=== PATIENT | female | born 1985 | race Caucasian/White ===

== ENCOUNTER → 2017-03-13 | Outpatient (CLI) | payer BC | END | disposition home or self-care (01) | LOC: C.PAPS 11:03 | PROVIDERS: ATTEND Obstetrics & Gynecology | DX: Z01.419 Encounter for gynecological examination (general) (routine) without abnormal findings (principal) ==

== ENCOUNTER 2021-02-08 07:43 | Inpatient (IN) ==
[2021-02-08] MEDS ORDERED: OXYTOCIN 30 UNITS/500 ML BAG IV PRN ×3 (07:45→17:42)
[2021-02-08 08:15] LABS: Hematocrit (blood only) 35.6 % (37-47); Hemoglobin 12.4 g/dL (12.0-16.0); Mean Corpuscular Hemoglobin 32.4 pg (25-34); Mean Corpuscular Hgb Conc 34.8 g/dL (32-36); Mean Platelet Volume 10.8 fL (7.4-10.4); Platelet Count 144 K/uL (130-400); RDW Coefficient of Variation 13.2 % (11.5-14.5); RDW Standard Deviation 44.7 fL (36.4-46.3); Red Blood Count 3.83 M/uL (4.2-5.4); White Blood Count 12.13 K/uL (4.8-10.8)
--- NOTE | 2021-02-08 08:21 | History & Physical Report ---
Date of Service February 08, 2021 Assessment & Plan (1) : Nafisa Copeland is a 35yo who is here for planned IOL at 40 weeks. - Admit for IOL - Augmentation with Pitocin per protocol - Patient is Rh negative, might need rhogam if baby is Rh positive - Clear liquid diet - GDM on insulin--Hourly BSG checks; insulin protocol if elevated BSGs CODE STATUS: Full (2) Gestational diabetes mellitus (GDM) affecting , antepartum: (3) Need for rhogam due to Rh negative mother: Admission and Anticipated Discharge Date Admission Date: February 08, 2021 History of Present Illness Primary Care Provider: Gayathri Resendiz MD Amber Copeland is a 35 y/o female currently at 40 WGA with an KIRSTIE 02/08/21 as determined by LMP who is here for planned IOL. Her was complicated by GDM on insulin. + contractions; + movement; - fluid loss; - bloody show Had regular appointments with OB. Blood type: A- Antibody screen: Negative Rubella: Immune VDRL/RPR: Negative Gonorrhea: Negative Chlamydia: Negative HIV: Negative HbSAg: Negative GBS: Negative 01/15/21 Other screens: CF: No SMA: No Allergies Allergy/AdvReac Type Severity Reaction Status Date / Time No Known Allergies Allergy Verified 02/05/21 15:18 Home Medications Medication Instructions Recorded Confirmed Type prenat.vits,brianna,zjy-vuvl-mcjqs 1 tab PO DAILY 06/29/20 02/05/21 History acetone (urine) test #100 ea 11/27/20 02/05/21 Rx lancets 30 gauge #120 ea 11/27/20 02/05/21 Rx insulin NPH isoph U-100 human 50 unit SUBCUT HS 01/25/21 02/05/21 History [Novolin N Flexpen] insulin lispro 8 - 10 unit SUBCUT BID 01/25/21 02/05/21 History insulin lispro [Humalog KwikPen 5 - 6 unit SUBCUT QAM 01/25/21 02/05/21 History Insulin] pen needle, diabetic 32 gauge x #100 ea 01/25/21 02/05/21 Rx 5/32" blood sugar diagnostic #150 ea 02/01/21 02/05/21 Rx Patient History Medical History (Updated 12/17/20 @ 15:[address], LDN, CDE) Advanced maternal age (AMA) in Chronic constipation Hx of varicella Inverted nipple Polycystic ovarian syndrome Supervision of normal intrauterine in primigravida Tremor Surgical History H/O nasal septoplasty History of appendectomy Family History Grandmother (Maternal) Coronary heart disease Esophageal cancer Grandfather (Maternal) Stroke Other Breast cancer Denies family history of Colon cancer Ovarian cancer Prostate cancer Myocardial infarction Social History Smoking Status: Never smoker Hx Alcohol Use: No Hx Substance Use: No Preferred Language: Bulgarian Communication Ability: Effective Visual Impairment: No Limitations Hearing Ability: Normal Beliefs That Will Affect Care: None marital status: marital status details: Attila Copeland (34) [phone] Current Living Situation: Spouse Current Living Situation Comment: lives with spouse, 1 dog current occupational status: employed current occupation: Teacher @ [employer] Feels Safe at Home: Yes Safety Concerns: Feels Safe At This Time Childhood Exposure to Second-Hand Smoke: No Dental Care, Regularly: Yes Physical Activity Frequency: 1-2 Times per Week Physical Activity Frequency Comment: REGULARLY Seatbelt Use: always Sunscreen Use: Yes Sexual Activity: has been sexually active within the last 12 months Assistive Devices: None Review of Systems Denies fever or chills. Denies shortness of breath or cough Denies chest pain Denies breast pain Denies dysuria or hematuria Denies leg pain or leg swelling Denies headache or changes in vision Physical Exam Physical Exam: General: Alert, oriented. No acute distress. Cardiac: Regular rate and rhythm Respiratory: No increased work of breathing. Symmetrical chest rise. No respiratory distress. Abdomen: Gravid. Vertex position. + heart tones. - palpable contractions. EFW 7-8# Pelvic: Dilation 4-5cm; Effacement 90%; Station -[address] Vaughn External FHT and external uterine monitors used; Category I tracing;Mod FHT variability. Lower Extremities: No lower extremity edema or swelling. Results & Data ([facility]) Vital Signs (Past 12 Hours) Vital Signs Pulse BP 02/08/21 07:55 93 H 131/84 Laboratory Results Labs on admission today H.4 Hct: 35.6 WBC: 12.13 Plt: 144 Supervising Physician Co-Signing Physician Notes Resident Physician Supervision Note: I was present with Dr. Desouza during the history and exam. I discussed the case with the resident and agree with the findings and plan as documented in the note. Any exceptions or clarifications are listed here: 35yo @ 40 0/7, IOL for GDMA2. Also AMA and Rh negative. Attempted vergara bulb last night, but cervix already dilated to 3cm. This morning, /-2. Plans for pitocin induction, will check blood sugars and plan for insulin if needed. Patient undecided on epidural. She is agreeable with plan. Documented By: Kerline Vaughn DO Resident Activity Tracking Resident Involvement: Resident Care Provided Care Provided: OB Delivery
[2021-02-08] MEDS: LACTATED RINGER'S 1,000 ML IV PRN ×2 (09:56→13:46)
[2021-02-08] MEDS ORDERED: ePHEDrine sulfate 50 MG/ML AMP ONE (13:03)
[2021-02-08] MEDS ORDERED: SODIUM CHLORIDE 0.9% INJ 10 ML VIAL ONE (13:03)
[2021-02-08] MEDS ORDERED: BUPIVACAINE 0.25% 30 ML VIAL ONE (13:04)
[2021-02-08] MEDS ORDERED: fentaNYL 2MCG/ML ROPIVACAINE 1.25MG/ML 100 ML BAG EPI ONE (13:04)
[2021-02-08] MEDS ORDERED: fentaNYL citrate 100 MCG/2 ML VIAL ONE (13:04)
--- NOTE | 2021-02-08 13:40 | Anesthesiology Consultation ---
Date of Service February 08, 2021 Assessment & Plan (1) Encounter for pre-operative examination: Chart Review Chart Review: Acceptable Risk for Labor Epidural History Height/Weight Height: 5 ft 1 in Weight: 75.75 kg Allergies Allergy/AdvReac Type Severity Reaction Status Date / Time No Known Allergies Allergy Verified 02/08/21 12:31 Medications Home Medications Medication Instructions Recorded Confirmed Last Taken acetone (urine) test #100 ea 11/27/20 02/05/21 Unknown lancets 30 gauge #120 ea 11/27/20 02/05/21 Unknown pen needle, diabetic 32 gauge x #100 ea 01/25/21 02/05/21 Unknown " blood sugar diagnostic #150 ea 02/01/21 02/05/21 Unknown prenat.vits,brianna,cwl-bkky-nmdeu 1 tab PO DAILY 02/08/21 02/08/21 02/07/21 20:00 [ Vitamin] Active Medications Generic Name Dose Route Start Last Admin Trade Name Freq PRN Reason Stop Dose Admin Oxytocin 30 units in 500 mls @ 9 mls/hr 02/08/21 07:45 02/08/21 12:45 Pitocin IV 02/10/21 07:44 0.54 units/hr .Q24H PRN 9 mls/hr Labor Induction/Augmentation Titration Protocol 0.54 UNITS/HR Lactated Ringer's 1,000 mls @ 125 mls/hr 02/08/21 07:45 02/08/21 12:56 Lr IV 02/10/21 07:44 999 mls/hr .Q8H PRN Infusion L&D Protocol Protocol Past Medical History Medical History Advanced maternal age (AMA) in Chronic constipation Hx of varicella Inverted nipple Polycystic ovarian syndrome Supervision of normal intrauterine in primigravida Tremor Past Family History Family History Grandmother (Maternal) Coronary heart disease Esophageal cancer Grandfather (Maternal) Stroke Other Breast cancer Denies family history of Colon cancer Ovarian cancer Prostate cancer Myocardial infarction Past Surgical History Surgical History H/O nasal septoplasty History of appendectomy Social History Smoking Status: Never smoker Hx Alcohol Use: No Hx Substance Use: No Physical Exam Vital Signs Last Vital Signs Temp 37.1 C 02/08/21 11:02 Pulse 88 02/08/21 13:37 Resp 18 02/08/21 12:56 BP 146/84 H 02/08/21 12:56 Pulse Ox 95 02/08/21 13:37 Testing Laboratory Results 02/08/21 07:55 02/08/21 02/08/21 02/08/21 12:54 12:04 11:06 POC Glucose 82 106 H 67 L* 02/08/21 02/08/21 10:04 09:09 POC Glucose 81 80
[2021-02-08] MEDS ORDERED: NALOXONE HCL 1 MG in SODIUM CHLORIDE 0.9% 1000ML 1,000 ML IV PRN (14:14)
[2021-02-08] MEDS ORDERED: fentaNYL 2MCG/ML ROPIVACAINE 1.25MG/ML 100 ML BAG EPI PRN (14:14)
[2021-02-08] MEDS ORDERED: ePHEDrine sulfate 50 MG/ML AMP IV PRN (14:14)
[2021-02-08] MEDS ORDERED: NALOXONE HCL 0.4 MG/1 ML VIAL/CARP IV PRN (14:14)
[2021-02-08] MEDS ORDERED: ONDANSETRON INJ 2 MG/ML 2 ML VIAL IV PRN (14:14)
--- NOTE | 2021-02-08 15:01 | Labor Progress Brief Note ---
Date of Service February 08, 2021 Subjective Feeling increased pressure with epidural. FHT Cat 1 Davis Q 2 SVE bulging membranes, 10/100/+1. AROM meconium stained fluid, large amount. Continue labor. Assessment & Plan Admission and Anticipated Discharge Date Admission Date: February 08, 2021 Results & Data ([facility]) Vital Signs (Past 12 Hours) Vital Signs Temp Pulse Resp BP Pulse Ox 02/08/21 14:57 100 H 139/89 96 02/08/21 14:52 86 97 02/08/21 14:47 90 97 02/08/21 14:42 89 97 02/08/21 14:41 83 152/76 H 02/08/21 14:40 98 H 190/126 H 02/08/21 14:39 214 H 179/133 H 02/08/21 14:37 90 97 02/08/21 14:35 88 177/74 H 02/08/21 14:32 80 98 02/08/21 14:31 87 127/86 02/08/21 14:29 76 124/79 02/08/21 14:27 79 117/74 97 02/08/21 14:26 80 108/55 L 02/08/21 14:23 78 132/75 02/08/21 14:22 73 97 02/08/21 14:21 70 130/76 02/08/21 14:19 69 123/74 02/08/21 14:17 88 130/72 97 02/08/21 14:15 74 128/73 02/08/21 14:13 73 144/70 H 02/08/21 14:12 73 97 02/08/21 14:09 74 131/64 02/08/21 14:08 68 129/61 02/08/21 14:07 73 97 02/08/21 14:06 78 94 02/08/21 14:04 82 143/73 H 02/08/21 14:02 85 142/77 H 97 02/08/21 13:59 80 139/96 02/08/21 13:57 77 96 02/08/21 13:52 79 97 02/08/21 13:47 93 H 98 02/08/21 13:42 82 97 02/08/21 13:37 88 95 02/08/21 13:32 81 98 02/08/21 13:27 85 97 02/08/21 12:56 77 18 146/84 H 02/08/21 12:03 75 123/73 02/08/21 11:02 37.1 C 88 20 123/75 02/08/21 10:00 93 H 135/85 02/08/21 08:01 37.0 C 20 02/08/21 07:55 93 H 131/84 Coding Level of Care Code None
[2021-02-08] MEDS ORDERED: LIDOCAINE HCL 1% 20 ML VIAL ONE ×2 (16:45→17:07)
[2021-02-08] MEDS ORDERED: IBUPROFEN 600 MG TAB PO ONE (17:30)
--- NOTE | 2021-02-08 17:35 | Delivery Summary ---
Vaginal Delivery Summary Date of Service February 08, 2021 Vaginal Delivery Summary and 3rd Degree LAC Vaginal Delivery Summary: Pre-delivery diagnoses: 35yo @ 40 0/7, GDMA2, IOL, Rh- Post-delivery diagnoses: same Procedure: spontaneous vaginal delivery, repair of 3rd degree perineal laceration and sulcal tear Surgeon: Kerline Vaughn DO Complications: none Findings: Viable male . Apgars: 8/9. Weight 9#4oz. Estimated blood loss: 400ml Description of delivery: The patient progressed to complete with epidural anesthesia. She then began to push. She spontaneously vaginally delivered a viable from the cephalic presentation. The head delivered in FAYE position. Nuchal cord x 1, easily reduced. The anterior shoulder delivered, followed by the posterior shoulder, followed by the body. The baby was placed on mother's abdomen and a spontaneous cry was heard. Delayed cord clamping was employed, and the cord was doubly clamped and cut after cessation of pulsation. Cord blood was obtained. The placenta was delivered spontaneously intact with a 3-vessel cord. The uterus and vagina were swept of clots and debris. IV pitocin was given. The uterus became firm. The cervix, vagina, and perineum were inspected and a partial 3rd degree laceration was noted. Lidocaine 1% for better pain control. Anal sphincter muscle was at the anterior portion. This was brought together with a [id number] stitch of 3-0 Chromic. There was also a right vaginal sulcal tear. This was repaired in standard fashion with 3-0 vicryl. Additional stitch was placed in periurethral area with 3-0 vicryl, [id number], with red rubber catheter in place to ensure distance from urethra. Excellent hemostasis was observed. The mother and baby are recovering in stable and good condition in the room. Sponge, needle, and instrument counts were correct x 2. Kerline Vaughn DO [facility] Vaginal Delivery Charge Vaginal Delivery Codes: 79501 global code for the antepartum, delivery, and post- Delivery Type Details: and 3rd Degree LAC
[2021-02-08] MEDS ORDERED: BENZOCAINE 20% AER SPR 82.5 GM CAN EXT PRN (17:42)
[2021-02-08] MEDS ORDERED: ACETAMINOPHEN 325 MG TAB PO PRN (17:42)
[2021-02-08] MEDS ORDERED: HYDROCORTISONE ACETATE 25 MG SUPP PR PRN (17:42)
[2021-02-08] MEDS ORDERED: SUPERCREAM 0.870% 15 GM JAR EXT PRN (17:42)
[2021-02-08] MEDS ORDERED: bisacodyL 10 MG SUPP PR PRN (17:42)
[2021-02-08] MEDS ORDERED: DIPHTHERIA/TETANUS/PERTUSSIS 0.5 ML SYR/VIAL IM ONE (17:42)
--- NOTE | 2021-02-08 18:17 | Anesthesia Procedure Note ---
Date of Service February 08, 2021 Anesthesia Post Epidural Note Vital Signs Vital Signs: Temp Pulse Resp BP Pulse Ox 37.3 C 94 H 18 130/66 94 02/08/21 15:30 02/08/21 18:06 02/08/21 15:30 02/08/21 18:06 02/08/21 17:51 Notes Mental Status: alert / awake / arousable and participated in evaluation Nausea / Vomiting: adequately controlled Pain: adequately controlled Airway Patency, RR, SpO2: stable & adequate BP & HR: stable & adequate Hydration State: stable & adequate Neuraxial Anesthesia: was administered and sensory block is resolving Anesthetic Complications: no major complications apparent Epidural: Removed without complications and With tip intact
[2021-02-08] MEDS: DOCUSATE SODIUM 100 MG CAP PO SCH (20:56)
[2021-02-08] MEDS: IBUPROFEN 600 MG TAB PO PRN (23:03)
[2021-02-09] MEDS: IBUPROFEN 600 MG TAB PO PRN ×2 (04:25→23:39)
--- NOTE | 2021-02-09 05:21 | Obstetrical Progress Note ---
Date of Service <Scott Kaur MD - Last Filed: 02/09/21 07:02> February 09, 2021 Assessment & Plan <Scott Kaur MD - Last Filed: 02/09/21 07:02> (1) : - PNL: Rh neg, RI, GBS neg, COVID neg - Feels well today. Eating well, voiding well, ambulating well - Pain well controlled with ibuprofen 600mg Q4H PRN - Routine care -- OOB, ambulation, diet progression as tolerated - After discharge will have 6 week follow-up with Dr. Vaugnh Subjective <Scott Kaur MD - Last Filed: 02/09/21 07:02> Nafisa is a 35 y/o female who is PPD #1 following at 40 weeks. She reports feeling well overall this morning. Some abdominal cramping and 4/10 pain well managed on analgesics. Voiding well. Tolerating meals overnight without difficulty. Patient has been able to ambulate some, but needed assistance from her as she has felt a bit lightheaded. Is passing gas but has not had a bowel movement yet. Has persistent lochia with some improvement this morning. Currently . Review of Systems Denies fever or chills. Denies shortness of breath or cough. Denies chest pain. Denies breast pain. Denies dysuria. Denies leg pain or leg swelling. Denies headache or changes in vision. Physical Exam <Scott Kaur MD - Last Filed: 02/09/21 07:02> General: Alert, oriented. No acute distress. Cardiac: Regular rate and rhythm. No murmurs. Respiratory: Clear to auscultation bilaterally a/p, no wheezes/rales/rhonchi. No increased work of breathing. Symmetrical chest rise. No respiratory distress. Abdomen: Soft, nontender, nondistended. Bowel sounds present. Uterus: Uterine fundus firm, palpable at umbilicus. Lower Extremities: No lower extremity edema or swelling. No deep calf pain. Marj's negative bilaterally. Results & Data ([facility]) <Scott Kaur MD - Last Filed: 02/09/21 07:02> Vital Signs (Past 12 Hours) Vital Signs Temp Pulse Pulse Resp BP BP Pulse Ox 02/09/21 04:30 36.4 C L 76 18 106/58 L 02/09/21 00:10 36.4 C L 78 18 123/76 02/08/21 19:05 106 H 131/67 02/08/21 18:51 95 H 18 139/66 02/08/21 18:42 93 H 18 131/85 02/08/21 18:36 107 H 149/67 H 02/08/21 18:20 109 H 18 131/66 02/08/21 18:06 94 H 130/66 02/08/21 18:05 94 H 18 130/66 02/08/21 17:55 82 132/99 02/08/21 17:51 93 H 131/85 94 02/08/21 17:48 97 H 96 02/08/21 17:43 98 H 98 02/08/21 17:38 90 98 02/08/21 17:36 82 148/74 H 02/08/21 17:35 89 18 148/74 H 98 02/08/21 17:33 90 96 02/08/21 17:28 93 H 95 02/08/21 17:24 97 H 93 02/08/21 17:23 96 H 94 <Kerline Vaughn DO - Last Filed: 02/09/21 08:19> Co-Signing Physician Notes Resident Physician Supervision Note: I was present with Dr. Desouza during the history and exam. I discussed the case with the resident and agree with the findings and plan as documented in the note. Any exceptions or clarifications are listed here: PPD#1 doing well. Sore perineum, is going to try percocet. Anticipate DC tomorrow. Documented By: Kerline Vaughn DO Resident Activity Tracking <Scott Kaur MD - Last Filed: 02/09/21 07:02> Resident Involvement: Resident Care Provided Care Provided: OB Delivery
[2021-02-09 06:30] LABS: Hemoglobin 10.1 g/dL (12.0-16.0)
[2021-02-09] MEDS: PRENATAL VITAMIN 1 TAB PO SCH (07:41)
[2021-02-09] MEDS: DOCUSATE SODIUM 100 MG CAP PO SCH ×2 (07:42→20:41)
[2021-02-09] MEDS: oxyCODONE/ACETAMINOPHEN 5mg/325mg TAB PO PRN ×3 (07:42→18:00)
[2021-02-09] MEDS ORDERED: bisacodyL 5 MG TABEC PO SCH (20:00)
--- NOTE | 2021-02-10 05:46 | Obstetrical Progress Note ---
Date of Service <Scott Kaur MD - Last Filed: 02/10/21 06:28> February 10, 2021 Assessment & Plan <Sctot Kaur MD - Last Filed: 02/10/21 06:28> (1) : - PNL: Rh neg, RI, GBS neg, COVID neg - Feels well today. Eating well, voiding well, ambulating well - Pain well controlled with ibuprofen 600mg Q4H PRN - Routine care -- OOB, ambulation, diet progression as tolerated - After discharge will have 6 week follow-up with Dr. Vaughn Subjective <Scott Kaur MD - Last Filed: 02/10/21 06:28> Nafisa is a 35 y/o female who is PPD #2 following at 40 weeks. She reports feeling well overall this morning. Light abdominal cramping and 4/10 pain well managed on analgesics. Voiding well. Tolerating meals overnight without difficulty. Patient has been able to ambulate some. Is passing gas, has not yet had a bowel movement. Has persistent lochia with some improvement this morning. Currently . Review of Systems Denies fever or chills. Denies shortness of breath or cough. Denies chest pain. Denies breast pain. Denies dysuria. Denies leg pain or leg swelling. Denies headache or changes in vision. Physical Exam <Scott Kaur MD - Last Filed: 02/10/21 06:28> General: Alert, oriented. No acute distress. Cardiac: Regular rate and rhythm. No murmurs. Respiratory: Clear to auscultation bilaterally a/p, no wheezes/rales/rhonchi. No increased work of breathing. Symmetrical chest rise. No respiratory distress. Abdomen: Soft, nontender, nondistended. Bowel sounds present. Uterus: Uterine fundus firm, palpable ~2 cm below umbilicus. Lower Extremities: No lower extremity edema or swelling. No deep calf pain. Marj's negative bilaterally. Results & Data ([facility]) <Scott Kaur MD - Last Filed: 02/10/21 06:28> Vital Signs (Past 12 Hours) Vital Signs Temp Pulse Resp BP Pulse Ox 02/09/21 23:30 36.9 C 98 H 18 112/67 96 02/09/21 19:25 37.0 C 102 H 18 129/79 97 <Ryann Doshi MD, FACOG - Last Filed: 02/10/21 07:52> Co-Signing Physician Notes Resident Physician Supervision Note: I interviewed and examined the patient. Discussed with Dr. Kaur and agree with findings and plan as documented in the note. Any exceptions or clarifications are listed here: [None] Documented By: Ryann Doshi MD, FACOG Resident Activity Tracking <Scott Kaur MD - Last Filed: 02/10/21 06:28> Resident Involvement: Resident Care Provided Care Provided: OB Delivery
[2021-02-10] MEDS: DOCUSATE SODIUM 100 MG CAP PO SCH (08:41)
[2021-02-10] MEDS: IBUPROFEN 600 MG TAB PO PRN (08:41)
[2021-02-10] MEDS: PRENATAL VITAMIN 1 TAB PO SCH (08:41)
== END 2021-02-10 15:10 | disposition home or self-care (01) | DRG 768 ==
LOC: 4S1 07:43 → 4S2 19:27